=== PATIENT | male | born 1990 | race Caucasian/White ===

== ENCOUNTER 2025-02-08 17:44 | Inpatient (IN) | payer OTHER, SELFPAY ==
[2025-02-08 18:20] VITALS: BP 152/75; PULSE 80; RESP 18; TEMP 36.4; O2SAT 94; BMI 38.9
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
[2025-02-08] MEDS: guaiFENesin LA 600 MG TAB.ER.12H PO (18:54)
[2025-02-08 20:27] VITALS: BP 128/67
[2025-02-09 08:00] VITALS: BP 130/65; PULSE 66; RESP 16; O2SAT 97
[2025-02-09] MEDS: buPROPion HCl XL 300 MG TAB.ER.24H PO (08:16)
[2025-02-09 08:36] LABS: Hemoglobin A1C 129.4032 umol/L; Total Hemoglobin (HGBA1C) 3572.9648 umol/L
[2025-02-09 08:52] LABS: Alanine Aminotransferase 30 U/L (0-40); Albumin Level 4.1 g/dL (3.5-5.0); Alkaline Phosphatase 75 U/L (39-117); Anion Gap 10 (12-20); Aspartate Amino Transferase 24 U/L (5-37); Blood Urea Nitrogen 8 mg/dL (9-16); Calcium 8.7 mg/dL (8.4-10.2); Carbon Dioxide 33 mmol/L (22-29); Chloride 105 mmol/L (96-108); Cholesterol 155 mg/dL (<200); Creatinine Clr Calc Pharmacy 157.2; Estimated Glomerular Filt Rate > 60; HDL Cholesterol 33 mg/dL (>40); Potassium 3.9 mmol/L (3.3-5.1); Sodium 144 mmol/L (135-145); Total Protein 6.6 g/dL (6.5-8.0); Triglycerides 90 mg/dL (<150)
--- NOTE | 2025-02-09 08:59 | HO.PM.IMCN ---
History of Present Illness Data of Consult Service Date: 02/09/25 Primary Care Provider: Unknown Physician HPI Reason for consult: Medical H&P 35-year-old male with a past medical history of anxiety, asthma, bipolar disorder, hepatitis-C, presented to [facility] with suicidal ideation. He was admitted to for further treatment. His BMP was within normal limits, CBC was within normal limits, patient tested positive for amphetamines benzos and marijuana as well as buprenorphine. On exam he is sleeping in bed, denies any medical concerns. Reports his asthma has been well controlled, has not needed p.r.n. inhaler. He denies any shortness of breath, dizziness, lightheadedness, chest pain, abdominal pain or any other concerning symptoms. Review of Systems Review of Systems: Denies any shortness of breath, chest pain, dizziness, lightheadedness, abdominal pain or discomfort, nausea vomiting or diarrhea PMFSH Social History Currently Displaying Signs/Symptoms of Drug Intoxication Withdrawal: No Advance Directives: No Advance Directives Information Provided: No Do you have thoughts of harming others: None Do you have a plan to hurt others: No Plan Meds Allergies Allergy/AdvReac Type Severity Reaction Status Date / Time cefaclor (From Ceclor) AdvReac Unknown Verified 02/08/25 18:16 clopidogrel (From Plavix) AdvReac Unknown Verified 02/08/25 18:16 doxycycline AdvReac Unknown Verified 02/08/25 18:16 haloperidol (From Haldol) AdvReac Unknown Verified 02/08/25 18:16 Sulfa (Sulfonamide AdvReac Unknown Verified 02/08/25 18:16 Antibiotics) Active Medications: Current Medications Acetaminophen (Acetaminophen 325 Mg Tablet) 650 mg PO Q6H PRN PRN Reason: Headache/Pain, Scale 1-10 Al Hydroxide/Mg Hydroxide (Magnesium Hydrox/Alum Hydrox 30 Ml Oral.Susp) 30 ml PO Q6H PRN PRN Reason: Heartburn/Nausea Buprenorphine/Naloxone (Buprenorphine/Naloxone 8/2 Mg Film) 1 film SUBLINGUAL BID@0900,1700 [facility] Last Admin: 02/09/25 08:16 Dose: 1 film Bupropion HCl (Bupropion Hcl Xl 300 Mg Tab.Er.24h) 300 mg PO DAILY [facility] Last Admin: 02/09/25 08:16 Dose: 300 mg Bupropion HCl (Bupropion Hcl Xl 150 Mg Tab.Er.24h) 150 mg PO DAILY@1300 [facility] Clonazepam (Clonazepam 1 Mg Tablet) 2 mg PO BID@0900,1700 [facility] Last Admin: 02/09/25 08:16 Dose: 2 mg Gabapentin (Gabapentin 600 Mg Tablet) 600 mg PO TID [facility] Last Admin: 02/09/25 08:16 Dose: 600 mg Guaifenesin (Guaifenesin La 600 Mg Tab.Er.12h) 600 mg PO BID PRN PRN Reason: Cough Last Admin: 02/08/25 18:54 Dose: 600 mg Hydroxyzine HCl (Hydroxyzine Hcl 25 Mg Tablet) 25 mg PO Q6H PRN PRN Reason: mild anxiety Eunice Carbonate (Eunice Carbonate 300 Mg Capsule) 600 mg PO BID [facility] Last Admin: 02/09/25 08:16 Dose: 600 mg Magnesium Hydroxide (Milk Of Magnesia 30 Ml Oral.Susp) 30 ml PO DAILY PRN PRN Reason: Constipation Melatonin (Melatonin 3 Mg Tablet) 9 mg PO BEDTIME [facility] Last Admin: 02/08/25 20:33 Dose: 9 mg Nicotine (Nicotine 21 Mg Patch.Td24) 21 mg TRANSDERMA DAILY [facility] Last Admin: 02/09/25 08:19 Dose: Not Given Nicotine (Nicotine 21 Mg Patch.Td24) 21 mg TRANSDERMA DAILY PRN PRN Reason: nicotine craving Nicotine Polacrilex (Nicotine Polacrilex 2 Mg Gum) 2 mg BUCCAL Q2H PRN PRN Reason: Nicotine Cravings Last Admin: 02/09/25 08:16 Dose: 2 mg Olanzapine (Olanzapine 10 Mg Tablet) 20 mg PO BEDTIME [facility] Last Admin: 02/08/25 20:27 Dose: 20 mg Olanzapine (Olanzapine 5 Mg Tablet) 5 mg PO BID PRN PRN Reason: agitation Prazosin HCl (Prazosin Hcl 5 Mg Capsule) 5 mg PO BEDTIME [facility]; Protocol Last Admin: 02/08/25 20:27 Dose: 5 mg Trazodone HCl (Trazodone Hcl 50 Mg Tablet) 50 mg PO BEDTIME MRX1 PRN PRN Reason: Insomnia Home Medications ?Medication ?Instructions ?Recorded ?Confirmed ?Last Taken ?Type buprenorphine 8 mg-naloxone 2 mg 1 film sublingual BID 02/08/25 02/08/25 Unknown History sublingual film (Suboxone) bupropion HCl 150 mg 24 hr tablet, 150 mg PO DAILY 02/08/25 02/08/25 Unknown History extended release bupropion HCl 300 mg 24 hr tablet, 300 mg PO DAILY depressive disorder 02/08/25 02/08/25 Unknown History extended release clonazepam 2 mg tablet 2 mg PO BID anxiety 02/08/25 02/08/25 Unknown History gabapentin 600 mg tablet 600 mg PO TID depressive disorder 02/08/25 02/08/25 Unknown History lithium carbonate 600 mg capsule 600 mg PO BID 02/08/25 02/08/25 Unknown History melatonin 3 mg tablet 9 mg PO BEDTIME 02/08/25 02/08/25 Unknown History olanzapine 20 mg tablet 20 mg PO BEDTIME 02/08/25 02/08/25 Unknown History prazosin 5 mg capsule 5 mg PO BEDTIME 02/08/25 02/08/25 Unknown History Physical Exam Vital Signs and Narrative: Vital Signs: Last Vital Signs Temp 97.6 F 02/08/25 18:20 Pulse 66 02/09/25 08:00 Resp 16 02/09/25 08:00 BP 130/65 02/09/25 08:00 Pulse Ox 97 02/09/25 08:00 O2 Del Method Room Air 02/09/25 08:00 BMI result Body Mass Index 38.9 Alert and oriented X3, able to give good history. Cooperative. Neuro: CN II-X11 intact, no deficits, visual acuity intact, PERRLA ENT: Hearing intact, lips moist Cardiac: S1 S2 RRR, No ectopy Pulmonary: Lungs clear to auscultation, No increased WOB. Abdominal: BS active in all 4 quadrants, no guarding or tenderness MSK: Strength 5/5 upper and lower extremities : Deferred Extremities: No edema in lower extremities Psych: Quiet and cooperative. Skin: Warm and dry, Intact Results Labs 02/09/25 08:11 Labs: Laboratory Results - last 24 hr 02/09/25 08:11 Anion Gap 10 L Estim Creat Clear Calc 157.2 Estimated GFR > 60 Random Glucose 90 Estimat Average Glucose 111 Hemoglobin A1c % 5.5 Calcium 8.7 Total Bilirubin 0.2 AST 24 ALT 30 Alkaline Phosphatase 75 Total Protein 6.6 Albumin 4.1 Triglycerides 90 Cholesterol 155 LDL Cholesterol, Calc 104 H HDL Cholesterol 33 L Assessment and Plan (1) Anxiety: Status: Acute Plan Bipolar disorder/anxiety/suicidal ideation/JONO Treatment per psychiatric team Patient currently taking Suboxone, clonazepam. Confirmed with mass PAT Asthma Stable with no exacerbations Patient reports not using an inhaler. Thank you for allowing me to participate in the care of this patient. Signing off at this time. Please reconsult of any acute concerns or issues arise
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
[2025-02-09] MEDS: buPROPion HCl XL 150 MG TAB.ER.24H PO (12:20)
[2025-02-09] MEDS: guaiFENesin LA 600 MG TAB.ER.12H PO (13:09)
[2025-02-09 20:00] VITALS: BP 132/87; PULSE 85; RESP 16; TEMP 36.6; O2SAT 98
[2025-02-10 08:00] VITALS: BP 136/77; PULSE 88; RESP 16; TEMP 36.6; O2SAT 96
[2025-02-10] MEDS: buPROPion HCl XL 300 MG TAB.ER.24H PO (08:39)
[2025-02-10] MEDS: guaiFENesin LA 600 MG TAB.ER.12H PO (08:41)
--- NOTE | 2025-02-10 09:45 | P.PNPSI_ITS ---
Subjective Subjective Date of Service: 02/10/25 Reason For Visit: SI Interim History: met with pt; discussed with team; reviewed chart past 4 days, perseverative on daughter, loss of niece, self-deprecating thoughts led to SI feeling better, and though SI comes and goes can dismiss hx of manic episodes that last for a few days up to few weeks discussed hx of medications and pt said he used to be on depakote and did quite well...now on [facility] for 6 months, but felt it has not done much for depression or curbing SI. Discussed risks/side-effects of depakote and he's like to get back on it and likely taper off and dc lithium sober since July 2018 Mental Status Exam Mental Status Exam Narrative: Patient is alert and oriented; behavior is cooperative, friendly, calm; patient is not in distress; dressed in hospital attire with adequate hygiene; mood is described as better and affect congruent; eye contact appropriate; Speech is normal rate, volume and prosody and not pressured; some psychomotor retardation present; thought process is organized and goal directed; Thought content is WNL and on treatment; pertinent to relevant topics and without any delusional content, paranoid ideation or grandiosity; denies any SI/SIB/HI. Denies AH and there is no evidence of perceptual disturbance. Patient's insight and judgment improving Diagnostics Vital Signs (24Hr): Vital Signs - 24 hr 02/09/25 20:00 Temperature 97.8 F Pulse Rate 85 Respiratory Rate 16 Blood Pressure 132/87 Pulse Oximetry 98 Oxygen Delivery Method Room Air BMI result Body Mass Index 38.9 Labs 02/09/25 08:11 Labs: Laboratory Results - last 48 hr 02/09/25 08:11 Sodium 144 Potassium 3.9 Chloride 105 Carbon Dioxide 33 H Anion Gap 10 L BUN 8 L Creatinine 0.88 Estim Creat Clear Calc 157.2 Estimated GFR > 60 Random Glucose 90 Estimat Average Glucose 111 Hemoglobin A1c % 5.5 Calcium 8.7 Total Bilirubin 0.2 AST 24 ALT 30 Alkaline Phosphatase 75 Total Protein 6.6 Albumin 4.1 Triglycerides 90 Cholesterol 155 LDL Cholesterol, Calc 104 H HDL Cholesterol 33 L TSH 2.27 Medications Medications Current Medications Acetaminophen (Acetaminophen 325 Mg Tablet) 650 mg PO Q6H PRN PRN Reason: Headache/Pain, Scale 1-10 Last Admin: 02/10/25 05:05 Dose: 650 mg Al Hydroxide/Mg Hydroxide (Magnesium Hydrox/Alum Hydrox 30 Ml Oral.Susp) 30 ml PO Q6H PRN PRN Reason: Heartburn/Nausea Buprenorphine/Naloxone (Buprenorphine/Naloxone 8/2 Mg Film) 1 film SUBLINGUAL BID@0900,1700 [facility] Last Admin: 02/10/25 08:43 Dose: 1 film Bupropion HCl (Bupropion Hcl Xl 300 Mg Tab.Er.24h) 300 mg PO DAILY [facility] Last Admin: 02/10/25 08:39 Dose: 300 mg Bupropion HCl (Bupropion Hcl Xl 150 Mg Tab.Er.24h) 150 mg PO DAILY@1300 [facility] Last Admin: 02/09/25 12:20 Dose: 150 mg Clonazepam (Clonazepam 1 Mg Tablet) 2 mg PO BID@0900,1700 [facility] Last Admin: 02/10/25 08:39 Dose: 2 mg Gabapentin (Gabapentin 600 Mg Tablet) 600 mg PO TID [facility] Last Admin: 02/10/25 08:40 Dose: 600 mg Guaifenesin (Guaifenesin La 600 Mg Tab.Er.12h) 600 mg PO BID PRN PRN Reason: Cough Last Admin: 02/10/25 08:41 Dose: 600 mg Hydroxyzine HCl (Hydroxyzine Hcl 25 Mg Tablet) 25 mg PO Q6H PRN PRN Reason: mild anxiety [facility] Carbonate ([facility] Carbonate 300 Mg Capsule) 600 mg PO BID [facility] Last Admin: 02/10/25 08:38 Dose: 600 mg Magnesium Hydroxide (Milk Of Magnesia 30 Ml Oral.Susp) 30 ml PO DAILY PRN PRN Reason: Constipation Melatonin (Melatonin 3 Mg Tablet) 9 mg PO BEDTIME [facility] Last Admin: 02/09/25 20:16 Dose: 9 mg Nicotine (Nicotine 21 Mg Patch.Td24) 21 mg TRANSDERMA DAILY [facility] Last Admin: 02/09/25 08:19 Dose: Not Given Nicotine (Nicotine 21 Mg Patch.Td24) 21 mg TRANSDERMA DAILY PRN PRN Reason: nicotine craving Nicotine Polacrilex (Nicotine Polacrilex 2 Mg Gum) 4 mg BUCCAL Q2H PRN PRN Reason: Nicotine Cravings Last Admin: 02/10/25 09:14 Dose: 4 mg Olanzapine (Olanzapine 10 Mg Tablet) 20 mg PO BEDTIME [facility] Last Admin: 02/09/25 20:16 Dose: 20 mg Olanzapine (Olanzapine 5 Mg Tablet) 5 mg PO BID PRN PRN Reason: agitation Prazosin HCl (Prazosin Hcl 5 Mg Capsule) 5 mg PO BEDTIME [facility]; Protocol Last Admin: 02/09/25 20:15 Dose: 5 mg Trazodone HCl (Trazodone Hcl 50 Mg Tablet) 50 mg PO BEDTIME MRX1 PRN PRN Reason: Insomnia Allergies Allergies Allergy/AdvReac Type Severity Reaction Status Date / Time cefaclor (From Ceclor) AdvReac Unknown Verified 02/08/25 18:16 clopidogrel (From Plavix) AdvReac Unknown Verified 02/08/25 18:16 doxycycline AdvReac Unknown Verified 02/08/25 18:16 haloperidol (From Haldol) AdvReac Unknown Verified 02/08/25 18:16 Sulfa (Sulfonamide AdvReac Unknown Verified 02/08/25 18:16 Antibiotics) Assessment & Plan Assessment & Plan (1) Bipolar disorder: Status: Acute Code(s): F31.9 - Bipolar disorder, unspecified (2) PTSD (post-traumatic stress disorder): Status: Acute Code(s): F43.10 - Post-traumatic stress disorder, unspecified (3) Anxiety: Status: Acute Code(s): F41.9 - Anxiety disorder, unspecified (4) Opioid use disorder: Status: Acute Code(s): F11.90 - Opioid use, unspecified, uncomplicated (5) Alcohol use disorder in remission: Status: Acute Code(s): F10.91 - Alcohol use, unspecified, in remission Plan HPI: Patient is a 35 years old male with past medical history significant for opioid use disorder on Suboxone for MAT, alcohol use disorder, bipolar, hep C, PTSD, and asthma presenting to ED reports low mood and suicidal thoughts. He he thought he was ready to be discharged from [facility], however once he got home, after 4 days, he does feel very overwhelmed and anxious, stressed out, do not want to be around with his daughter who he loves. Do not want to be around the dog or around with family. He feels like his depression is worse after discharge from [place]. Formulation/clinical reasoning: Increase depression, and SI, feeling overwhelmed, not motivated to be around with loved ones, do not be want to be around with a dog family members which is not usual him. Using THC a couple of nights/week carrying mental health diagnosis of PTSD, bipolar, opioid use, alcohol use disorder with 3 suicide attempts in the past year. [facility] level was 0.2. Given information, patient will be benefit for inpatient level of care in restrictive environment for his safety and for medication adjustment to take it depressed and anxiety symptoms. Also will refer him to outpatient psychiatry services for aftercare. Hospital course: 02/09/25: No safety concern on admission. Restart on home medications. However is seems he only take lithium 600 at bedtime. Nursing confirmed with [facility], patient take it twice a day. We will increase the dose and recheck the level in 4-5 days after. MAT: Suboxone 8/2 films twice a day Klonopin 2 mg twice a day severe anxiety Gabapentin [address] mood [facility] 600 twice a day for mood. Wellbutrin XL 450 mg in divided dose for depression. Zyprexa 20 mg at bedtime for severe mood. Melatonin 9 mg at bedtime for insomnia. Mucinex 600 b.i.d. p.r.n. for congestion. Prazosin 5 mg at bedtime for PTSD. 02/10 past 4 days, perseverative on daughter, loss of niece, self-deprecating thoughts led to SI feeling better, and though SI comes and goes can dismiss hx of manic episodes that last for a few days up to few weeks discussed hx of medications and pt said he used to be on depakote and did quite well...now on [facility] for 6 months, but felt it has not done much for depression or curbing SI. Discussed risks/side-effects of depakote and he's like to get back on it and likely taper off and dc lithium sober since July 2018 Plan Start Depakot ER 500mg bedtime Patient on 15 minute checks for safety. Admitted to . . Work with treatment team to do collateral and for aftercare appointments. Contact the hospitalist regarding hospitalist consultation on admission Some labs work ordered per protocol on admission. Patient educated on: diagnosis, medication risk/benefits, substance abuse and therapeutic strategies Informed Consent: understands Reason for continued inpatient stay Substantial Risk for: rapid decompensation Time Spent With Patient Time: Total time managing care of this patient today ____ minutes.
[2025-02-10] MEDS: buPROPion HCl XL 150 MG TAB.ER.24H PO (12:05)
[2025-02-10 20:00] VITALS: BP 123/67; PULSE 87; RESP 18; TEMP 36.9; O2SAT 96
[2025-02-11 08:00] VITALS: BP 124/80; PULSE 105; RESP 16; TEMP 36.7; O2SAT 97
[2025-02-11] MEDS: buPROPion HCl XL 300 MG TAB.ER.24H PO (08:30)
[2025-02-11] MEDS: guaiFENesin LA 600 MG TAB.ER.12H PO ×2 (10:35→20:38)
[2025-02-11] MEDS: buPROPion HCl XL 150 MG TAB.ER.24H PO (12:00)
[2025-02-11 20:00] VITALS: BP 145/67; PULSE 88; TEMP 36.4; O2SAT 96
[2025-02-11 20:06] VITALS: BP 145/67
[2025-02-12 08:00] VITALS: PULSE 95; TEMP 36.6
[2025-02-12] MEDS: buPROPion HCl XL 300 MG TAB.ER.24H PO (08:14)
[2025-02-12 08:36] LABS: Lithium 0.56 mmol/L (0.60-1.20)
[2025-02-12] MEDS: guaiFENesin LA 600 MG TAB.ER.12H PO ×2 (09:06→21:11)
--- NOTE | 2025-02-12 09:46 | HO.PSYCHPN ---
Subjective Subjective Date of Service: 02/12/25 Reason For Visit: SI Interim History: Pt reports depressive sx 0, anxiety 5. States he believes regime to be on track and effective thus far. Later in the day, with peers, interactive, watching television and socializing. No current questions or concerns. Denies SI,HI, AH, VH No sx of behavioral dyscontrol Medication Compliance: Yes Side effects from medications: No Attending Groups: Intermittent Review of Systems Acute medical concerns: No Review of Systems Review of Systems Denies Mental Status Exam Mental Status Exam Patient Appearance: Fatigued and Appropriate Patient Orientation: Person, Place, Time and Situation Level of Consciousness: Alert Patient Behavior: Talkative Mood Description: Constricted Affect Description: Constricted Patient Cognition Impaired: No Ability to Follow Directions: Good Speech Pattern: Spontaneous Speech Memory Description: Intact Hallucinations: None Delusions: Not Present Thought Process: Intact Thought Content: positive for Intact Judgement: Fair Diagnostics Vital Signs (24Hr): Vital Signs - 24 hr 02/11/25 20:00 02/11/25 20:06 02/12/25 08:00 Temperature 97.6 F 98 F Pulse Rate 88 95 Blood Pressure 145/67 H 145/67 H Pulse Oximetry 96 Oxygen Delivery Method Room Air BMI result Body Mass Index 38.9 Labs 02/09/25 08:11 Labs: Laboratory Results - last 48 hr 02/12/25 07:40 [place] 0.56 L Medications Medications Current Medications Acetaminophen (Acetaminophen 325 Mg Tablet) 650 mg PO Q6H PRN PRN Reason: Headache/Pain, Scale 1-10 Last Admin: 02/10/25 05:05 Dose: 650 mg Al Hydroxide/Mg Hydroxide (Magnesium Hydrox/Alum Hydrox 30 Ml Oral.Susp) 30 ml PO Q6H PRN PRN Reason: Heartburn/Nausea Buprenorphine/Naloxone (Buprenorphine/Naloxone 8/2 Mg Film) 1 film SUBLINGUAL BID@0900,1700 [facility] Last Admin: 02/12/25 08:13 Dose: 1 film Bupropion HCl (Bupropion Hcl Xl 300 Mg Tab.Er.24h) 300 mg PO DAILY [facility] Last Admin: 02/12/25 08:14 Dose: 300 mg Bupropion HCl (Bupropion Hcl Xl 150 Mg Tab.Er.24h) 150 mg PO DAILY@1300 [facility] Last Admin: 02/11/25 12:00 Dose: 150 mg Clonazepam (Clonazepam 1 Mg Tablet) 2 mg PO BID@0900,1700 [facility] Last Admin: 02/12/25 08:14 Dose: 2 mg Divalproex Sodium (Divalproex Sodium Er 500 Mg Tab.Er.24h) 500 mg PO BEDTIME [facility] Last Admin: 02/11/25 20:07 Dose: 500 mg Fluticasone Propionate (Fluticasone Propionate Nasal 16 Gm [place]) 1 spray NOSTRIL-B DAILY [facility] Last Admin: 02/11/25 10:35 Dose: 1 spray Gabapentin (Gabapentin 600 Mg Tablet) 600 mg PO TID [facility] Last Admin: 02/12/25 08:13 Dose: 600 mg Guaifenesin (Guaifenesin La 600 Mg Tab.Er.12h) 600 mg PO BID PRN PRN Reason: Cough Last Admin: 02/12/25 09:06 Dose: 600 mg Hydroxyzine HCl (Hydroxyzine Hcl 25 Mg Tablet) 25 mg PO Q6H PRN PRN Reason: mild anxiety [place] Carbonate ([place] Carbonate 300 Mg Capsule) 600 mg PO BID [facility] Last Admin: 02/12/25 08:14 Dose: 600 mg Magnesium Hydroxide (Milk Of Magnesia 30 Ml Oral.Susp) 30 ml PO DAILY PRN PRN Reason: Constipation Melatonin (Melatonin 3 Mg Tablet) 9 mg PO BEDTIME [facility] Last Admin: 02/11/25 20:08 Dose: 9 mg Nicotine (Nicotine 21 Mg Patch.Td24) 21 mg TRANSDERMA DAILY [facility] Last Admin: 02/12/25 09:08 Dose: Not Given Nicotine (Nicotine 21 Mg Patch.Td24) 21 mg TRANSDERMA DAILY PRN PRN Reason: nicotine craving Nicotine Polacrilex (Nicotine Polacrilex 2 Mg Gum) 4 mg BUCCAL Q2H PRN PRN Reason: Nicotine Cravings Last Admin: 02/12/25 09:06 Dose: 4 mg Olanzapine (Olanzapine 10 Mg Tablet) 20 mg PO BEDTIME [facility] Last Admin: 02/11/25 20:06 Dose: 20 mg Olanzapine (Olanzapine 5 Mg Tablet) 5 mg PO BID PRN PRN Reason: agitation Prazosin HCl (Prazosin Hcl 5 Mg Capsule) 5 mg PO BEDTIME [facility]; Protocol Last Admin: 02/11/25 20:06 Dose: 5 mg Trazodone HCl (Trazodone Hcl 50 Mg Tablet) 50 mg PO BEDTIME MRX1 PRN PRN Reason: Insomnia Allergies Allergies Allergy/AdvReac Type Severity Reaction Status Date / Time cefaclor (From Ceclor) AdvReac Unknown Verified 02/08/25 18:16 clopidogrel (From Plavix) AdvReac Unknown Verified 02/08/25 18:16 doxycycline AdvReac Unknown Verified 02/08/25 18:16 haloperidol (From Haldol) AdvReac Unknown Verified 02/08/25 18:16 Sulfa (Sulfonamide AdvReac Unknown Verified 02/08/25 18:16 Antibiotics) Assessment & Plan Assessment & Plan (1) Bipolar disorder: Status: Acute Code(s): F31.9 - Bipolar disorder, unspecified (2) PTSD (post-traumatic stress disorder): Status: Acute Code(s): F43.10 - Post-traumatic stress disorder, unspecified (3) Anxiety: Status: Acute Code(s): F41.9 - Anxiety disorder, unspecified (4) Opioid use disorder: Status: Acute Code(s): F11.90 - Opioid use, unspecified, uncomplicated (5) Alcohol use disorder in remission: Status: Acute Code(s): F10.91 - Alcohol use, unspecified, in remission Plan HPI: Patient is a 35 years old male with past medical history significant for opioid use disorder on Suboxone for MAT, alcohol use disorder, bipolar, hep C, PTSD, and asthma presenting to ED reports low mood and suicidal thoughts. He he thought he was ready to be discharged from [facility], however once he got home, after 4 days, he does feel very overwhelmed and anxious, stressed out, do not want to be around with his daughter who he loves. Do not want to be around the dog or around with family. He feels like his depression is worse after discharge from [place]. Formulation/clinical reasoning: Increase depression, and SI, feeling overwhelmed, not motivated to be around with loved ones, do not be want to be around with a dog family members which is not usual him. Using THC a couple of nights/week carrying mental health diagnosis of PTSD, bipolar, opioid use, alcohol use disorder with 3 suicide attempts in the past year. [place] level was 0.2. Given information, patient will be benefit for inpatient level of care in restrictive environment for his safety and for medication adjustment to take it depressed and anxiety symptoms. Also will refer him to outpatient psychiatry services for aftercare. Hospital course: 02/09/25: No safety concern on admission. Restart on home medications. However is seems he only take lithium 600 at bedtime. Nursing confirmed with [facility], patient take it twice a day. We will increase the dose and recheck the level in 4-5 days after. MAT: Suboxone 8/2 films twice a day Klonopin 2 mg twice a day severe anxiety Gabapentin 600 with t.i.d. for mood [place] 600 twice a day for mood. Wellbutrin XL 450 mg in divided dose for depression. Zyprexa 20 mg at bedtime for severe mood. Melatonin 9 mg at bedtime for insomnia. Mucinex 600 b.i.d. p.r.n. for congestion. Prazosin 5 mg at bedtime for PTSD. 02/10 past 4 days, perseverative on daughter, loss of niece, self-deprecating thoughts led to SI feeling better, and though SI comes and goes can dismiss hx of manic episodes that last for a few days up to few weeks discussed hx of medications and pt said he used to be on depakote and did quite well...now on [place] for 6 months, but felt it has not done much for depression or curbing SI. Discussed risks/side-effects of depakote and he's like to get back on it and likely taper off and dc lithium sober since July 201802/12: Valproate level 02/14 for titration. Plan Start Depakot ER 500mg bedtime Patient on 15 minute checks for safety. Admitted to . [facility]. Work with treatment team to do collateral and for aftercare appointments. Contact the hospitalist regarding hospitalist consultation on admission Some labs work ordered per protocol on admission. Reason for continued inpatient stay Substantial Risk for: rapid decompensation Time Spent With Patient Time: Total time managing care of this patient today ____ minutes.
[2025-02-12] MEDS: buPROPion HCl XL 150 MG TAB.ER.24H PO (12:00)
[2025-02-12 19:31] VITALS: BP 112/70; PULSE 89; TEMP 36.7; O2SAT 95
[2025-02-12 19:59] VITALS: BP 112/70
[2025-02-12] MEDS: Divalproex Sodium ER 250 MG TAB.ER.24H 750 MG PO (19:59)
[2025-02-13 07:58] VITALS: BP 133/72; PULSE 78; RESP 18; O2SAT 94
[2025-02-13] MEDS: buPROPion HCl XL 300 MG TAB.ER.24H PO (08:25)
[2025-02-13] MEDS: buPROPion HCl XL 150 MG TAB.ER.24H PO (12:00)
--- NOTE | 2025-02-13 16:52 | P.PNPSI_ITS ---
Subjective Subjective Date of Service: 02/13/25 Reason For Visit: SI Interim History: Visable in milieu. Denies sx of concern or adverse effects. Valproate level 02/14 for titration No questions today regarding regime/plan. No requests for changes. Medication Compliance: Yes Side effects from medications: No Attending Groups: Intermittent Review of Systems Acute medical concerns: No Review of Systems Review of Systems I am OK. Mental Status Exam Mental Status Exam Patient Appearance: Appropriate Patient Orientation: Person, Place, Time and Situation Level of Consciousness: Alert Patient Behavior: Talkative Mood Description: Constricted Affect Description: Constricted Patient Cognition Impaired: No Ability to Follow Directions: Good Speech Pattern: Spontaneous Speech Memory Description: Intact Hallucinations: None Delusions: Not Present Thought Process: Intact Thought Content: positive for Intact Judgement: Fair Diagnostics Vital Signs (24Hr): Vital Signs - 24 hr 02/12/25 19:31 02/12/25 19:59 02/13/25 07:58 Temperature 98.0 F Pulse Rate 89 78 Respiratory Rate 18 Blood Pressure 112/70 112/70 133/72 Pulse Oximetry 95 94 Oxygen Delivery Method Room Air Room Air BMI result Body Mass Index 38.9 Labs 02/09/25 08:11 Labs: Laboratory Results - last 48 hr 02/12/25 07:40 [place] 0.56 L Medications Medications Current Medications Acetaminophen (Acetaminophen 325 Mg Tablet) 650 mg PO Q6H PRN PRN Reason: Headache/Pain, Scale 1-10 Last Admin: 02/10/25 05:05 Dose: 650 mg Al Hydroxide/Mg Hydroxide (Magnesium Hydrox/Alum Hydrox 30 Ml Oral.Susp) 30 ml PO Q6H PRN PRN Reason: Heartburn/Nausea Buprenorphine/Naloxone (Buprenorphine/Naloxone 8/2 Mg Film) 1 film SUBLINGUAL BID@0900,1700 [facility] Last Admin: 02/13/25 08:30 Dose: 1 film Bupropion HCl (Bupropion Hcl Xl 300 Mg Tab.Er.24h) 300 mg PO DAILY [facility] Last Admin: 02/13/25 08:25 Dose: 300 mg Bupropion HCl (Bupropion Hcl Xl 150 Mg Tab.Er.24h) 150 mg PO DAILY@1300 [facility] Last Admin: 02/13/25 12:00 Dose: 150 mg Clonazepam (Clonazepam 1 Mg Tablet) 2 mg PO BID@0900,1700 [facility] Last Admin: 02/13/25 08:25 Dose: 2 mg Divalproex Sodium (Divalproex Sodium Er 250 Mg Tab.Er.24h) 750 mg PO BEDTIME [facility] Last Admin: 02/12/25 19:59 Dose: 750 mg Fluticasone Propionate (Fluticasone Propionate Nasal 16 Gm [place]) 1 spray NOSTRIL-B DAILY [facility] Last Admin: 02/13/25 08:27 Dose: Not Given Gabapentin (Gabapentin 600 Mg Tablet) 600 mg PO TID [facility] Last Admin: 02/13/25 15:13 Dose: 600 mg Guaifenesin (Guaifenesin La 600 Mg Tab.Er.12h) 600 mg PO BID PRN PRN Reason: Cough Last Admin: 02/12/25 21:11 Dose: 600 mg Hydroxyzine HCl (Hydroxyzine Hcl 25 Mg Tablet) 25 mg PO Q6H PRN PRN Reason: mild anxiety [place] Carbonate ([place] Carbonate 300 Mg Capsule) 600 mg PO BID [facility] Last Admin: 02/13/25 08:25 Dose: 600 mg Magnesium Hydroxide (Milk Of Magnesia 30 Ml Oral.Susp) 30 ml PO DAILY PRN PRN Reason: Constipation Melatonin (Melatonin 3 Mg Tablet) 9 mg PO BEDTIME [facility] Last Admin: 02/12/25 19:58 Dose: 9 mg Nicotine (Nicotine 21 Mg Patch.Td24) 21 mg TRANSDERMA DAILY [facility] Last Admin: 02/13/25 08:26 Dose: Not Given Nicotine (Nicotine 21 Mg Patch.Td24) 21 mg TRANSDERMA DAILY PRN PRN Reason: nicotine craving Nicotine Polacrilex (Nicotine Polacrilex 2 Mg Gum) 4 mg BUCCAL Q2H PRN PRN Reason: Nicotine Cravings Last Admin: 02/13/25 10:58 Dose: 4 mg Olanzapine (Olanzapine 10 Mg Tablet) 20 mg PO BEDTIME [facility] Last Admin: 02/12/25 19:59 Dose: 20 mg Olanzapine (Olanzapine 5 Mg Tablet) 5 mg PO BID PRN PRN Reason: agitation Prazosin HCl (Prazosin Hcl 5 Mg Capsule) 5 mg PO BEDTIME [facility]; Protocol Last Admin: 02/12/25 19:59 Dose: 5 mg Trazodone HCl (Trazodone Hcl 50 Mg Tablet) 50 mg PO BEDTIME MRX1 PRN PRN Reason: Insomnia Allergies Allergies Allergy/AdvReac Type Severity Reaction Status Date / Time cefaclor (From [facility]) AdvReac Unknown Verified 07/15/25 18:16 clopidogrel (From Plavix) AdvReac Unknown Verified 02/08/25 18:16 doxycycline AdvReac Unknown Verified 02/08/25 18:16 haloperidol (From Haldol) AdvReac Unknown Verified 02/08/25 18:16 Sulfa (Sulfonamide AdvReac Unknown Verified 02/08/25 18:16 Antibiotics) Assessment & Plan Assessment & Plan (1) Bipolar disorder: Status: Acute Code(s): F31.9 - Bipolar disorder, unspecified (2) PTSD (post-traumatic stress disorder): Status: Acute Code(s): F43.10 - Post-traumatic stress disorder, unspecified (3) Anxiety: Status: Acute Code(s): F41.9 - Anxiety disorder, unspecified (4) Opioid use disorder: Status: Acute Code(s): F11.90 - Opioid use, unspecified, uncomplicated (5) Alcohol use disorder in remission: Status: Acute Code(s): F10.91 - Alcohol use, unspecified, in remission Plan HPI: Patient is a 35 years old male with past medical history significant for opioid use disorder on Suboxone for MAT, alcohol use disorder, bipolar, hep C, PTSD, and asthma presenting to ED reports low mood and suicidal thoughts. He he thought he was ready to be discharged from [facility], however once he got home, after 4 days, he does feel very overwhelmed and anxious, stressed out, do not want to be around with his daughter who he loves. Do not want to be around the dog or around with family. He feels like his depression is worse after discharge from [place]. Formulation/clinical reasoning: Increase depression, and SI, feeling overwhelmed, not motivated to be around with loved ones, do not be want to be around with a dog family members which is not usual him. Using THC a couple of nights/week carrying mental health diagnosis of PTSD, bipolar, opioid use, alcohol use disorder with 3 suicide attempts in the past year. [place] level was 0.2. Given information, patient will be benefit for inpatient level of care in restrictive environment for his safety and for medication adjustment to take it depressed and anxiety symptoms. Also will refer him to outpatient psychiatry services for aftercare. Hospital course: 02/09/25: No safety concern on admission. Restart on home medications. However is seems he only take lithium 600 at bedtime. Nursing confirmed with [facility], patient take it twice a day. We will increase the dose and recheck the level in 4-5 days after. MAT: Suboxone 8/2 films twice a day Klonopin 2 mg twice a day severe anxiety Gabapentin 600 with t.i.d. for mood [place] 600 twice a day for mood. Wellbutrin XL 450 mg in divided dose for depression. Zyprexa 20 mg at bedtime for severe mood. Melatonin 9 mg at bedtime for insomnia. Mucinex 600 b.i.d. p.r.n. for congestion. Prazosin 5 mg at bedtime for PTSD. 02/10 past 4 days, perseverative on daughter, loss of niece, self-deprecating thoughts led to SI feeling better, and though SI comes and goes can dismiss hx of manic episodes that last for a few days up to few weeks discussed hx of medications and pt said he used to be on depakote and did quite well...now on [place] for 6 months, but felt it has not done much for depression or curbing SI. Discussed risks/side-effects of depakote and he's like to get back on it and likely taper off and dc lithium 02/13: Valproate level 02/14 for titration. sober since July 2018 Plan Start Depakot ER 500mg bedtime Patient on 15 minute checks for safety. Admitted to . . Work with treatment team to do collateral and for aftercare appointments. Contact the hospitalist regarding hospitalist consultation on admission Some labs work ordered per protocol on admission. Reason for continued inpatient stay Substantial Risk for: rapid decompensation Time Spent With Patient Time: Total time managing care of this patient today ____ minutes.
[2025-02-13 20:00] VITALS: BP 127/73; PULSE 96; RESP 16; TEMP 36.6; O2SAT 97
[2025-02-13] MEDS: Divalproex Sodium ER 250 MG TAB.ER.24H 750 MG PO (20:09)
[2025-02-14 08:00] VITALS: BP 119/78; PULSE 81; RESP 16; TEMP 36.8; O2SAT 99
[2025-02-14] MEDS: buPROPion HCl XL 300 MG TAB.ER.24H PO (08:08)
[2025-02-14] MEDS: buPROPion HCl XL 150 MG TAB.ER.24H PO (12:01)
[2025-02-14 20:00] VITALS: BP 119/78; PULSE 86; RESP 18; TEMP 36.6; O2SAT 97
[2025-02-14] MEDS: Divalproex Sodium ER 250 MG TAB.ER.24H 750 MG PO (20:04)
[2025-02-14] MEDS: guaiFENesin LA 600 MG TAB.ER.12H PO (20:05)
--- NOTE | 2025-02-14 20:54 | P.PNPSI_ITS ---
Subjective Subjective Date of Service: 02/14/25 Reason For Visit: SI Subjective Notes: Conditional Voluntary Healthcare Proxy: No Guardianship: No Medical Problems Affecting Mental Status: No Medication Compliance: Yes Side effects from medications: Yes (Somewhat sedated) Attending Groups: No Review of Systems Acute medical concerns: No Medical Review of Systems: unchanged Review of Systems Review of Systems Denies any shortness of breath, chest pain, dizziness, lightheadedness, abdominal pain or discomfort, nausea vomiting or diarrhea Yes all other systems are reviewed and are negative Mental Status Exam Mental Status Exam Narrative: Patient is alert and oriented; behavior is cooperative, friendly with mild to moderate anxiety and depression; patient is not in distress; dressed in casual l attire with adequate hygiene; mood is described as depressed and anxiety and affect congruent; eye contact appropriate; Speech is normal rate, volume and prosody and not pressured; no psychomotor agitation/retardation present; thought process is organized and goal directed; Thought content is WNL, pertinent to relevant topics and without any delusional content, paranoid ideation or grandiosity; denies SIB/HI. However reports intermittently suicidal thoughts, denies plan or intention at this current time. Denies AH and there is no evidence of perceptual disturbance. Patient's insight and judgment fair. Diagnostics Vital Signs (24Hr): Vital Signs - 24 hr 02/14/25 08:00 02/14/25 20:00 Temperature 98.2 F 98 F Pulse Rate 81 86 Respiratory Rate 16 18 Blood Pressure 119/78 119/78 Pulse Oximetry 99 97 Oxygen Delivery Method Room Air Room Air BMI result Body Mass Index 38.9 Labs 02/09/25 08:11 Labs: Laboratory Results - last 48 hr 02/14/25 07:47 Valproic Acid 29.2 L Medications Medications Current Medications Acetaminophen (Acetaminophen 325 Mg Tablet) 650 mg PO Q6H PRN PRN Reason: Headache/Pain, Scale 1-10 Last Admin: 02/10/25 05:05 Dose: 650 mg Al Hydroxide/Mg Hydroxide (Magnesium Hydrox/Alum Hydrox 30 Ml Oral.Susp) 30 ml PO Q6H PRN PRN Reason: Heartburn/Nausea Buprenorphine/Naloxone (Buprenorphine/Naloxone 8/2 Mg Film) 1 film SUBLINGUAL BID@0900,1700 [facility] Last Admin: 02/14/25 17:26 Dose: 1 film Bupropion HCl (Bupropion Hcl Xl 300 Mg Tab.Er.24h) 300 mg PO DAILY [facility] Last Admin: 02/14/25 08:08 Dose: 300 mg Bupropion HCl (Bupropion Hcl Xl 150 Mg Tab.Er.24h) 150 mg PO DAILY@1200 [facility] Last Admin: 02/14/25 12:01 Dose: 150 mg Clonazepam (Clonazepam 1 Mg Tablet) 2 mg PO BID@0900,1700 [facility] Last Admin: 02/14/25 17:26 Dose: 2 mg Divalproex Sodium (Divalproex Sodium Er 250 Mg Tab.Er.24h) 750 mg PO BEDTIME [facility] Last Admin: 02/14/25 20:04 Dose: 750 mg Fluticasone Propionate (Fluticasone Propionate Nasal 16 Gm [place]) 1 spray NOSTRIL-B DAILY [facility] Last Admin: 02/14/25 08:10 Dose: Not Given Gabapentin (Gabapentin 600 Mg Tablet) 600 mg PO TID [facility] Last Admin: 02/14/25 20:05 Dose: 600 mg Guaifenesin (Guaifenesin [place] 600 Mg Tab.Er.12h) 600 mg PO BID PRN PRN Reason: Cough Last Admin: 02/14/25 20:05 Dose: 600 mg Hydroxyzine HCl (Hydroxyzine Hcl 25 Mg Tablet) 25 mg PO Q6H PRN PRN Reason: mild anxiety [place] Carbonate ([place] Carbonate 300 Mg Capsule) 600 mg PO BID [facility] Last Admin: 02/14/25 20:05 Dose: 600 mg Magnesium Hydroxide (Milk Of Magnesia 30 Ml Oral.Susp) 30 ml PO DAILY PRN PRN Reason: Constipation Melatonin (Melatonin 3 Mg Tablet) 9 mg PO BEDTIME [facility] Last Admin: 02/14/25 20:06 Dose: 9 mg Nicotine (Nicotine 21 Mg Patch.Td24) 21 mg TRANSDERMA DAILY [facility] Last Admin: 02/14/25 08:13 Dose: Not Given Nicotine (Nicotine 21 Mg Patch.Td24) 21 mg TRANSDERMA DAILY PRN PRN Reason: nicotine craving Nicotine Polacrilex (Nicotine Polacrilex 2 Mg Gum) 4 mg BUCCAL Q2H PRN PRN Reason: Nicotine Cravings Last Admin: 02/14/25 19:36 Dose: 4 mg Olanzapine (Olanzapine 10 Mg Tablet) 20 mg PO BEDTIME [facility] Last Admin: 02/14/25 20:04 Dose: 20 mg Olanzapine (Olanzapine 5 Mg Tablet) 5 mg PO BID PRN PRN Reason: agitation Prazosin HCl (Prazosin Hcl 5 Mg Capsule) 5 mg PO BEDTIME [facility]; Protocol Last Admin: 02/14/25 20:07 Dose: 5 mg Trazodone HCl (Trazodone Hcl 50 Mg Tablet) 50 mg PO BEDTIME MRX1 PRN PRN Reason: Insomnia Allergies Allergies Allergy/AdvReac Type Severity Reaction Status Date / Time cefaclor (From Ceclor) AdvReac Unknown Verified 02/08/25 18:16 clopidogrel (From Plavix) AdvReac Unknown Verified 02/08/25 18:16 doxycycline AdvReac Unknown Verified 02/08/25 18:16 haloperidol (From Haldol) AdvReac Unknown Verified 02/08/25 18:16 Sulfa (Sulfonamide AdvReac Unknown Verified 02/08/25 18:16 Antibiotics) Assessment & Plan Assessment & Plan (1) Bipolar disorder: Status: Acute Code(s): F31.9 - Bipolar disorder, unspecified (2) PTSD (post-traumatic stress disorder): Status: Acute Code(s): F43.10 - Post-traumatic stress disorder, unspecified (3) Anxiety: Status: Acute Code(s): F41.9 - Anxiety disorder, unspecified (4) Opioid use disorder: Status: Acute Code(s): F11.90 - Opioid use, unspecified, uncomplicated (5) Alcohol use disorder in remission: Status: Acute Code(s): F10.91 - Alcohol use, unspecified, in remission Plan HPI: Patient is a 35 years old male with past medical history significant for opioid use disorder on Suboxone for MAT, alcohol use disorder, bipolar, hep C, PTSD, and asthma presenting to ED reports low mood and suicidal thoughts. He he thought he was ready to be discharged from [facility], however once he got home, after 4 days, he does feel very overwhelmed and anxious, stressed out, do not want to be around with his daughter who he loves. Do not want to be around the dog or around with family. He feels like his depression is worse after discharge from [place]. Formulation/clinical reasoning: Increase depression, and SI, feeling overwhelmed, not motivated to be around with loved ones, do not be want to be around with a dog family members which is not usual him. Using THC a couple of nights/week carrying mental health diagnosis of PTSD, bipolar, opioid use, alcohol use disorder with 3 suicide attempts in the past year. [place] level was 0.2. Given information, patient will be benefit for inpatient level of care in restrictive environment for his safety and for medication adjustment to take it depressed and anxiety symptoms. Also will refer him to outpatient psychiatry services for aftercare. Hospital course: 02/09/25: No safety concern on admission. Restart on home medications. However is seems he only take lithium 600 at bedtime. [facility], patient take it twice a day. We will increase the dose and recheck the level in 4-5 days after. MAT: Suboxone 8/2 films twice a day Klonopin 2 mg twice a day severe anxiety Gabapentin 600 with t.i.d. for mood [place] 600 twice a day for mood. Wellbutrin XL 450 mg in divided dose for depression. Zyprexa 20 mg at bedtime for severe mood. Melatonin 9 mg at bedtime for insomnia. Mucinex 600 b.i.d. p.r.n. for congestion. Prazosin 5 mg at bedtime for PTSD. 02/10 past 4 days, perseverative on daughter, loss of niece, self-deprecating thoughts led to SI feeling better, and though SI comes and goes can dismiss hx of manic episodes that last for a few days up to few weeks discussed hx of medications and pt said he used to be on depakote and did quite well...now on [place] for 6 months, but felt it has not done much for depression or curbing SI. Discussed risks/side-effects of depakote and he's like to get back on it and likely taper off and dc lithium 02/13: Valproate level 02/14 for titration. sober since July 201802/14: We will continue titrate up on Depakote as the level come back low 29.2. We will double dose at this time. He currently on 750 at bedtime. We will titrate down on lithium is currently at 600 b.i.d. social service assistant and this provider met with patient in group room. Patient reports do intermittently having suicidal thoughts, with a plan or intention to do harm to him at this moment. Feel like he is not ready to be discharged and could be do something harmful to himself if discharged at this time. He has not attended groups which he agreed to do started today. Continued to report poor appetite. Rate anxiety a 4/10 and depression is 7/10. We will adjust his medication Increase Depakote 750 mg daily to 750 twice a day for depression/mood. Taper down on lithium. [place] 600 b.i.d. down to 300 b.i.d.. Plan [place] level on 02/12: 0.56. Kidney function is within normal limit VPA level on 02/14: 29.2. Liver function is within normal limit. Continue to titrate Depakote to therapeutic level to target depression. Titrate down and taper off from lithium. Patient on 15 minute checks for safety. Admitted to . [facility]. Work with treatment team to do collateral and for aftercare appointments. Some labs work ordered per protocol on admission. Patient educated on: medication risk/benefits and therapeutic strategies Informed Consent: understands Reason for continued inpatient stay Substantial Risk for: med/psych decompensation Time Spent With Patient Time: Total time managing care of this patient today ____ minutes.
[2025-02-15] MEDS: guaiFENesin LA 600 MG TAB.ER.12H PO (03:29)
--- NOTE | 2025-02-15 05:26 | PC.NURSE ---
Pt c/o wheezing cough and requested for inhaler at 0320. freight caller provider informed and order was put in for inhaler. However, he was irritable and angry, went to bed and slept off. RN tried to wake him up but Pt was snoring loud
[2025-02-15 08:00] VITALS: BP 140/82; PULSE 96; RESP 16; TEMP 36.4; O2SAT 94
[2025-02-15] MEDS: Divalproex Sodium ER 250 MG TAB.ER.24H 750 MG PO (08:00)
[2025-02-15] MEDS: buPROPion HCl XL 300 MG TAB.ER.24H PO (08:01)
--- NOTE | 2025-02-15 09:51 | P.PNPSI_ITS ---
Subjective Subjective Date of Service: 02/15/25 Reason For Visit: SI Interim History: Met with patient; discussed with team Patient says that he is overall feeling better and does not think he will need to be in the hospital much longer. He says he is getting a lot of the groups finds them very beneficial. Discussed discharge this and initially patient was anxious about it saying he wanted to stay another day so he could attend more groups; however with more discussion patient said he would be fine and that he remains overall stable for discharge, with plans to return to his brother's which he finds supportive. Denies any SI and says he will work on staying stable in the community, agreeing to consider going to partial day program. Mental Status Exam Mental Status Exam Narrative: Pt is alert and oriented; behavior is cooperative, friendly and calm; patient is not in distress; casually dressed with adequate hygiene and grooming; mood is described as better and affect congruent; eye contact appropriate; Speech is normal rate, volume and prosody and not pressured; no psychomotor agitation/retardation present; thought process is organized and goal directed; Thought content is on tx, aftercare; otherwise pertinent to relevant topics and without any delusional content, paranoid ideations or grandiosity; denies any SI/HI. Denies AVH and there is no evidence of perceptual disturbance. Patients insight and judgment appear intact. Diagnostics Vital Signs (24Hr): Vital Signs - 24 hr 02/14/25 20:00 02/15/25 08:00 Temperature 98 F 97.5 F Pulse Rate 86 96 Respiratory Rate 18 16 Blood Pressure 119/78 140/82 H Pulse Oximetry 97 94 Oxygen Delivery Method Room Air Room Air BMI result Body Mass Index 38.9 Labs 02/09/25 08:11 Labs: Laboratory Results - last 48 hr 02/14/25 07:47 Valproic Acid 29.2 L Medications Medications Current Medications Acetaminophen (Acetaminophen 325 Mg Tablet) 650 mg PO Q6H PRN PRN Reason: Headache/Pain, Scale 1-10 Last Admin: 02/15/25 07:59 Dose: 650 mg Al Hydroxide/Mg Hydroxide (Magnesium Hydrox/Alum Hydrox 30 Ml Oral.Susp) 30 ml PO Q6H PRN PRN Reason: Heartburn/Nausea Albuterol Sulfate (Albuterol Sulfate 90 Mcg 8 Gm Inhaler) 2 puff INHALE RQ4H PRN PRN Reason: SOB/wheeze Buprenorphine/Naloxone (Buprenorphine/Naloxone 8/2 Mg Film) 1 film SUBLINGUAL BID@0900,1700 [facility] Last Admin: 02/15/25 08:02 Dose: 1 film Bupropion HCl (Bupropion Hcl Xl 300 Mg Tab.Er.24h) 300 mg PO DAILY [facility] Last Admin: 02/15/25 08:01 Dose: 300 mg Bupropion HCl (Bupropion Hcl Xl 150 Mg Tab.Er.24h) 150 mg PO DAILY@1200 [facility] Last Admin: 02/14/25 12:01 Dose: 150 mg Clonazepam (Clonazepam 1 Mg Tablet) 2 mg PO BID@0900,1700 [facility] Last Admin: 02/15/25 08:01 Dose: 2 mg Divalproex Sodium (Divalproex Sodium Er 250 Mg Tab.Er.24h) 750 mg PO BID [facility] Last Admin: 02/15/25 08:00 Dose: 750 mg Fluticasone Propionate (Fluticasone Propionate Nasal 16 Gm [place]) 1 spray NOSTRIL-B DAILY [facility] Last Admin: 02/15/25 08:08 Dose: Not Given Gabapentin (Gabapentin 600 Mg Tablet) 600 mg PO TID [facility] Last Admin: 02/15/25 08:01 Dose: 600 mg Guaifenesin (Guaifenesin La 600 Mg Tab.Er.12h) 600 mg PO BID PRN PRN Reason: Cough Last Admin: 02/15/25 03:29 Dose: 600 mg Hydroxyzine HCl (Hydroxyzine Hcl 25 Mg Tablet) 25 mg PO Q6H PRN PRN Reason: mild anxiety [place] Carbonate ([place] Carbonate 300 Mg Capsule) 300 mg PO BID [facility] Last Admin: 02/15/25 08:00 Dose: 300 mg Magnesium Hydroxide (Milk Of Magnesia 30 Ml Oral.Susp) 30 ml PO DAILY PRN PRN Reason: Constipation Melatonin (Melatonin 3 Mg Tablet) 9 mg PO BEDTIME [facility] Last Admin: 02/14/25 20:06 Dose: 9 mg Nicotine (Nicotine 21 Mg Patch.Td24) 21 mg TRANSDERMA DAILY [facility] Last Admin: 02/15/25 08:07 Dose: Not Given Nicotine (Nicotine 21 Mg Patch.Td24) 21 mg TRANSDERMA DAILY PRN PRN Reason: nicotine craving Nicotine Polacrilex (Nicotine Polacrilex 2 Mg Gum) 4 mg BUCCAL Q2H PRN PRN Reason: Nicotine Cravings Last Admin: 02/15/25 08:24 Dose: 4 mg Olanzapine (Olanzapine 10 Mg Tablet) 20 mg PO BEDTIME [facility] Last Admin: 02/14/25 20:04 Dose: 20 mg Olanzapine (Olanzapine 5 Mg Tablet) 5 mg PO BID PRN PRN Reason: agitation Prazosin HCl (Prazosin Hcl 5 Mg Capsule) 5 mg PO BEDTIME [facility]; Protocol Last Admin: 02/14/25 20:07 Dose: 5 mg Trazodone HCl (Trazodone Hcl 50 Mg Tablet) 50 mg PO BEDTIME MRX1 PRN PRN Reason: Insomnia Allergies Allergies Allergy/AdvReac Type Severity Reaction Status Date / Time cefaclor (From Ceclor) AdvReac Unknown Verified 02/08/25 18:16 clopidogrel (From Plavix) AdvReac Unknown Verified 02/08/25 18:16 doxycycline AdvReac Unknown Verified 02/08/25 18:16 haloperidol (From Haldol) AdvReac Unknown Verified 02/08/25 18:16 Sulfa (Sulfonamide AdvReac Unknown Verified 02/08/25 18:16 Antibiotics) Assessment & Plan Assessment & Plan (1) Bipolar disorder: Status: Acute Code(s): F31.9 - Bipolar disorder, unspecified (2) PTSD (post-traumatic stress disorder): Status: Acute Code(s): F43.10 - Post-traumatic stress disorder, unspecified (3) Anxiety: Status: Acute Code(s): F41.9 - Anxiety disorder, unspecified (4) Opioid use disorder: Status: Acute Code(s): F11.90 - Opioid use, unspecified, uncomplicated (5) Alcohol use disorder in remission: Status: Acute Code(s): F10.91 - Alcohol use, unspecified, in remission Plan HPI: Patient is a 35 years old male with past medical history significant for opioid use disorder on Suboxone for MAT, alcohol use disorder, bipolar, hep C, PTSD, and asthma presenting to ED reports low mood and suicidal thoughts. He he thought he was ready to be discharged from [place] plan, however once he got home, after 4 days, he does feel very overwhelmed and anxious, stressed out, do not want to be around with his daughter who he loves. Do not want to be around the dog or around with family. He feels like his depression is worse after discharge from [place]. Formulation/clinical reasoning: Increase depression, and SI, feeling overwhelmed, not motivated to be around with loved ones, do not be want to be around with a dog family members which is not usual him. Using THC a couple of nights/week carrying mental health diagnosis of PTSD, bipolar, opioid use, alcohol use disorder with 3 suicide attempts in the past year. [place] level was 0.2. Given information, patient will be benefit for inpatient level of care in restrictive environment for his safety and for medication adjustment to take it depressed and anxiety symptoms. Also will refer him to outpatient psychiatry services for aftercare. Hospital course: 02/09/25: No safety concern on admission. Restart on home medications. However is seems he only take lithium 600 at bedtime. Nursing confirmed with [facility], patient take it twice a day. We will increase the dose and recheck the level in 4-5 days after. MAT: Suboxone 8/2 films twice a day Klonopin 2 mg twice a day severe anxiety Gabapentin 600 with t.i.d. for mood [place] 600 twice a day for mood. Wellbutrin XL 450 mg in divided dose for depression. Zyprexa 20 mg at bedtime for severe mood. Melatonin 9 mg at bedtime for insomnia. Mucinex 600 b.i.d. p.r.n. for congestion. Prazosin 5 mg at bedtime for PTSD. 02/10 past 4 days, perseverative on daughter, loss of niece, self-deprecating thoughts led to SI feeling better, and though SI comes and goes can dismiss hx of manic episodes that last for a few days up to few weeks discussed hx of medications and pt said he used to be on depakote and did quite well...now on [place] for 6 months, but felt it has not done much for depression or curbing SI. Discussed risks/side-effects of depakote and he's like to get back on it and likely taper off and dc lithium -sober since July 201802/11 Patient says he is feeling better and appreciates being started on Depakote. Wants to be weaned off lithium with it discontinued before he leaves. Agrees to increase Depakote dose 02/13: Valproate level 02/14 for titration. 02/14: We will continue titrate up on Depakote as the level come back low 29.2. We will double dose at this time. He currently on 750 at bedtime. We will titrate down on lithium is currently at 600 b.i.d. medical social worker and this provider met with patient in group room. Patient reports do intermittently having suicidal thoughts, with a plan or intention to do harm to him at this moment. Feel like he is not ready to be discharged and could be do something harmful to himself if discharged at this time. He has not attended groups which he agreed to do started today. Continued to report poor appetite. Rate anxiety a 11/04 and depression is 02/03. We will adjust his medication Increase Depakote 750 mg daily to 750 twice a day for depression/mood. Taper down on lithium. [place] 600 b.i.d. down to 300 b.i.d.. 02/15 Patient says that he is overall feeling better and does not think he will need to be in the hospital much longer. He says he is getting a lot of the groups finds them very beneficial. Discussed discharge this and initially patient was anxious about it saying he wanted to stay another day so he could attend more groups; however with more discussion patient said he would be fine and that he remains overall stable for discharge, with plans to return to his brother's which he finds supportive. Denies any SI and says he will work on staying stable in the community, agreeing to consider going to partial day program. -will reduce Depakote to 1000 q.h.s. and let outpatient provider further titrate if needed; will get labs -will taper and DC lithium Patient is at baseline. He has remained in good behavioral and impulse control, with depression resolved and anxiety significantly lowered; no SI. Patient is future oriented and plans to continue treatment as an outpatient. He will very likely continue to struggle with emotional reactivity and at some point become dysregulated again however this is a chronic struggle for him, 1 of which he is well aware and will not change with longer stay on inpatient unit. Rather he requires consistent outpatient treatment which patient says he is willing to engage. Patient is not in imminent risk for harm to self or others and appropriate to return to the community for treatment Plan Depakote ER 1000 mg q.h.s. -will get labs Taper DC lithium [place] level on 02/12: 0.56. Kidney function is within normal limit VPA level on 02/14: 29.2. Liver function is within normal limit. Continue to titrate Depakote to therapeutic level to target depression. Titrate down and taper off from lithium. Patient on 15 minute checks for safety. Admitted to . [facility]. Work with treatment team to do collateral and for aftercare appointments. Some labs work ordered per protocol on admission. Patient educated on: diagnosis, medication risk/benefits and therapeutic strategies Informed Consent: understands Reason for continued inpatient stay Substantial Risk for: stable for discharge Time Spent With Patient Time: Total time managing care of this patient today ____ minutes.
[2025-02-15] MEDS: buPROPion HCl XL 150 MG TAB.ER.24H PO (11:28)
[2025-02-15] MEDS: Magnesium Hydrox/Alum Hydrox 30 ML ORAL.SUSP PO (11:28)
[2025-02-15 19:59] VITALS: BP 121/73
[2025-02-15 20:00] VITALS: BP 121/73; PULSE 100; TEMP 36.8; O2SAT 98
[2025-02-16 08:00] VITALS: BP 139/91; PULSE 90; TEMP 36.8; O2SAT 90
[2025-02-16] MEDS: buPROPion HCl XL 300 MG TAB.ER.24H PO (08:19)
[2025-02-16 10:04] VITALS: O2SAT 95
[2025-02-16] MEDS: buPROPion HCl XL 150 MG TAB.ER.24H PO (11:19)
[2025-02-16] MEDS: Magnesium Hydrox/Alum Hydrox 30 ML ORAL.SUSP PO (11:19)
--- NOTE | 2025-02-16 16:37 | P.PNPSI_ITS ---
Subjective Subjective Date of Service: 02/11/25 Reason For Visit: SI Interim History: Late entry note for patient seen on 02/11/25; discussed with team Patient says he is feeling better and appreciates being started on Depakote. Wants to be weaned off lithium with it discontinued before he leaves. Agrees to increase Depakote dose Mental Status Exam Mental Status Exam Narrative: Patient is alert and oriented; behavior is cooperative, friendly, calm; patient is not in distress; dressed in hospital attire with adequate hygiene; mood is described as ok and affect congruent, brighter; eye contact appropriate; Speech is normal rate, volume and prosody and not pressured; some psychomotor retardation present; thought process is organized and goal directed; Thought content is WNL and on treatment; pertinent to relevant topics and without any delusional content, paranoid ideation or grandiosity; denies any SI/SIB/HI. Denies AH and there is no evidence of perceptual disturbance. Patient's insight and judgment improving Diagnostics Vital Signs (24Hr): Vital Signs - 24 hr 02/15/25 19:59 02/15/25 20:00 02/16/25 08:00 Temperature 98.2 F 98.2 F Pulse Rate 100 90 Blood Pressure 121/73 121/73 139/91 H Pulse Oximetry 98 90 L Oxygen Delivery Method Room Air Room Air 02/16/25 10:04 Temperature Pulse Rate Blood Pressure Pulse Oximetry 95 Oxygen Delivery Method Room Air BMI result Body Mass Index 38.9 Labs 02/09/25 08:11 Medications Medications Current Medications Acetaminophen (Acetaminophen 325 Mg Tablet) 650 mg PO Q6H PRN PRN Reason: Headache/Pain, Scale 1-10 Last Admin: 02/15/25 07:59 Dose: 650 mg Al Hydroxide/Mg Hydroxide (Magnesium Hydrox/Alum Hydrox 30 Ml Oral.Susp) 30 ml PO Q6H PRN PRN Reason: Heartburn/Nausea Last Admin: 02/16/25 11:19 Dose: 30 ml Albuterol Sulfate (Albuterol Sulfate 90 Mcg 8 Gm Inhaler) 2 puff INHALE RQ4H PRN PRN Reason: SOB/wheeze Buprenorphine/Naloxone (Buprenorphine/Naloxone 8/2 Mg Film) 1 film SUBLINGUAL BID@0900,1700 [facility] Last Admin: 02/16/25 08:19 Dose: 1 film Bupropion HCl (Bupropion Hcl Xl 300 Mg Tab.Er.24h) 300 mg PO DAILY [facility] Last Admin: 02/16/25 08:19 Dose: 300 mg Bupropion HCl (Bupropion Hcl Xl 150 Mg Tab.Er.24h) 150 mg PO DAILY@1200 [facility] Last Admin: 02/16/25 11:19 Dose: 150 mg Clonazepam (Clonazepam 1 Mg Tablet) 2 mg PO BID@0900,1700 [facility] Last Admin: 02/16/25 08:19 Dose: 2 mg Divalproex Sodium (Divalproex Sodium Er 500 Mg Tab.Er.24h) 1,000 mg PO BEDTIME [facility] Last Admin: 02/15/25 20:00 Dose: 1,000 mg Fluticasone Propionate (Fluticasone Propionate Nasal 16 Gm [place]) 1 spray NOSTRIL-B DAILY [facility] Last Admin: 02/16/25 11:19 Dose: 1 spray Gabapentin (Gabapentin 600 Mg Tablet) 600 mg PO TID [facility] Last Admin: 02/16/25 15:00 Dose: 600 mg Guaifenesin (Guaifenesin La 600 Mg Tab.Er.12h) 600 mg PO BID PRN PRN Reason: Cough Last Admin: 02/15/25 03:29 Dose: 600 mg Hydroxyzine HCl (Hydroxyzine Hcl 25 Mg Tablet) 25 mg PO Q6H PRN PRN Reason: mild anxiety Magnesium Hydroxide (Milk Of Magnesia 30 Ml Oral.Susp) 30 ml PO DAILY PRN PRN Reason: Constipation Melatonin (Melatonin 3 Mg Tablet) 9 mg PO BEDTIME [facility] Last Admin: 02/15/25 19:59 Dose: 9 mg Nicotine (Nicotine 21 Mg Patch.Td24) 21 mg TRANSDERMA DAILY [facility] Last Admin: 02/16/25 11:41 Dose: Not Given Nicotine (Nicotine 21 Mg Patch.Td24) 21 mg TRANSDERMA DAILY PRN PRN Reason: nicotine craving Nicotine Polacrilex (Nicotine Polacrilex 2 Mg Gum) 4 mg BUCCAL Q2H PRN PRN Reason: Nicotine Cravings Last Admin: 02/16/25 11:19 Dose: 4 mg Olanzapine (Olanzapine 10 Mg Tablet) 20 mg PO BEDTIME [facility] Last Admin: 02/15/25 19:59 Dose: 20 mg Olanzapine (Olanzapine 5 Mg Tablet) 5 mg PO BID PRN PRN Reason: agitation Prazosin HCl (Prazosin Hcl 5 Mg Capsule) 5 mg PO BEDTIME [facility]; Protocol Last Admin: 02/15/25 19:59 Dose: 5 mg Trazodone HCl (Trazodone Hcl 50 Mg Tablet) 50 mg PO BEDTIME MRX1 PRN PRN Reason: Insomnia Allergies Allergies Allergy/AdvReac Type Severity Reaction Status Date / Time cefaclor (From Ceclor) AdvReac Unknown Verified 02/08/25 18:16 clopidogrel (From Plavix) AdvReac Unknown Verified 02/08/25 18:16 doxycycline AdvReac Unknown Verified 02/08/25 18:16 haloperidol (From Haldol) AdvReac Unknown Verified 02/08/25 18:16 Sulfa (Sulfonamide AdvReac Unknown Verified 02/08/25 18:16 Antibiotics) Assessment & Plan Assessment & Plan (1) Bipolar disorder: Status: Acute Code(s): F31.9 - Bipolar disorder, unspecified (2) PTSD (post-traumatic stress disorder): Status: Acute Code(s): F43.10 - Post-traumatic stress disorder, unspecified (3) Anxiety: Status: Acute Code(s): F41.9 - Anxiety disorder, unspecified (4) Opioid use disorder: Status: Acute Code(s): F11.90 - Opioid use, unspecified, uncomplicated (5) Alcohol use disorder in remission: Status: Acute Code(s): F10.91 - Alcohol use, unspecified, in remission Plan HPI: Patient is a 35 years old male with past medical history significant for opioid use disorder on Suboxone for MAT, alcohol use disorder, bipolar, hep C, PTSD, and asthma presenting to ED reports low mood and suicidal thoughts. He he thought he was ready to be discharged from [facility], however once he got home, after 4 days, he does feel very overwhelmed and anxious, stressed out, do not want to be around with his daughter who he loves. Do not want to be around the dog or around with family. He feels like his depression is worse after discharge from [place]. Formulation/clinical reasoning: Increase depression, and SI, feeling overwhelmed, not motivated to be around with loved ones, do not be want to be around with a dog family members which is not usual him. Using THC a couple of nights/week carrying mental health diagnosis of PTSD, bipolar, opioid use, alcohol use disorder with 3 suicide attempts in the past year. [place] level was 0.2. Given information, patient will be benefit for inpatient level of care in restrictive environment for his safety and for medication adjustment to take it depressed and anxiety symptoms. Also will refer him to outpatient psychiatry services for aftercare. Hospital course: 02/09/25: No safety concern on admission. Restart on home medications. However is seems he only take lithium 600 at bedtime. [facility], patient take it twice a day. We will increase the dose and recheck the level in 4-5 days after. MAT: Suboxone 8/2 films twice a day Klonopin 2 mg twice a day severe anxiety Gabapentin 600 with t.i.d. for mood [place] 600 twice a day for mood. Wellbutrin XL 450 mg in divided dose for depression. Zyprexa 20 mg at bedtime for severe mood. Melatonin 9 mg at bedtime for insomnia. Mucinex 600 b.i.d. p.r.n. for congestion. Prazosin 5 mg at bedtime for PTSD. 02/10 past 4 days, perseverative on daughter, loss of niece, self-deprecating thoughts led to SI feeling better, and though SI comes and goes can dismiss hx of manic episodes that last for a few days up to few weeks discussed hx of medications and pt said he used to be on depakote and did quite well...now on [place] for 6 months, but felt it has not done much for depression or curbing SI. Discussed risks/side-effects of depakote and he's like to get back on it and likely taper off and dc lithium -sober since July 201802/11 Patient says he is feeling better and appreciates being started on Depakote. Wants to be weaned off lithium with it discontinued before he leaves. Agrees to increase Depakote dose Plan Start Depakot ER 500mg bedtime Patient on 15 minute checks for safety. Admitted to . . Work with treatment team to do collateral and for aftercare appointments. Contact the hospitalist regarding hospitalist consultation on admission Some labs work ordered per protocol on admission. Patient educated on: diagnosis and medication risk/benefits Informed Consent: understands Reason for continued inpatient stay Substantial Risk for: rapid decompensation Time Spent With Patient Time: Total time managing care of this patient today ____ minutes.
--- NOTE | 2025-02-16 16:47 | HO.PSYCHPN ---
Subjective Subjective Date of Service: 02/16/25 Reason For Visit: SI Interim History: Met with patient; discussed with team Patient says he is doing good and ready for discharge tomorrow. No complaints or requests. Understands Depakote level will be drawn tomorrow. Regarding controlled substances discussed scripts for continuing Suboxone and clonazepam. Mental Status Exam Mental Status Exam Narrative: Pt is alert and oriented; behavior is cooperative, friendly and calm; patient is not in distress; casually dressed with adequate hygiene and grooming; mood is described as good and affect congruent; eye contact appropriate; Speech is normal rate, volume and prosody and not pressured; no psychomotor agitation/retardation present; thought process is organized and goal directed; Thought content is on tx, aftercare; otherwise pertinent to relevant topics and without any delusional content, paranoid ideations or grandiosity; denies any SI/HI. Denies AVH and there is no evidence of perceptual disturbance. Patients insight and judgment are intact. Diagnostics Vital Signs (24Hr): Vital Signs - 24 hr 02/15/25 19:59 02/15/25 20:00 02/16/25 08:00 Temperature 98.2 F 98.2 F Pulse Rate 100 90 Blood Pressure 121/73 121/73 139/91 H Pulse Oximetry 98 90 L Oxygen Delivery Method Room Air Room Air 02/16/25 10:04 Temperature Pulse Rate Blood Pressure Pulse Oximetry 95 Oxygen Delivery Method Room Air BMI result Body Mass Index 38.9 Labs 02/09/25 08:11 Medications Medications Current Medications Acetaminophen (Acetaminophen 325 Mg Tablet) 650 mg PO Q6H PRN PRN Reason: Headache/Pain, Scale 1-10 Last Admin: 02/15/25 07:59 Dose: 650 mg Al Hydroxide/Mg Hydroxide (Magnesium Hydrox/Alum Hydrox 30 Ml Oral.Susp) 30 ml PO Q6H PRN PRN Reason: Heartburn/Nausea Last Admin: 02/16/25 11:19 Dose: 30 ml Albuterol Sulfate (Albuterol Sulfate 90 Mcg 8 Gm Inhaler) 2 puff INHALE RQ4H PRN PRN Reason: SOB/wheeze Buprenorphine/Naloxone (Buprenorphine/Naloxone 8/2 Mg Film) 1 film SUBLINGUAL BID@0900,1700 MOOSE Last Admin: 02/16/25 16:41 Dose: 1 film Bupropion HCl (Bupropion Hcl Xl 300 Mg Tab.Er.24h) 300 mg PO DAILY [facility] Last Admin: 02/16/25 08:19 Dose: 300 mg Bupropion HCl (Bupropion Hcl Xl 150 Mg Tab.Er.24h) 150 mg PO DAILY@1200 [facility] Last Admin: 02/16/25 11:19 Dose: 150 mg Clonazepam (Clonazepam 1 Mg Tablet) 2 mg PO BID@0900,1700 [facility] Last Admin: 02/16/25 16:41 Dose: 2 mg Divalproex Sodium (Divalproex Sodium Er 500 Mg Tab.Er.24h) 1,000 mg PO BEDTIME [facility] Last Admin: 02/15/25 20:00 Dose: 1,000 mg Fluticasone Propionate (Fluticasone Propionate Nasal 16 Gm [place]) 1 spray NOSTRIL-B DAILY [facility] Last Admin: 02/16/25 11:19 Dose: 1 spray Gabapentin (Gabapentin 600 Mg Tablet) 600 mg PO TID [facility] Last Admin: 02/16/25 15:00 Dose: 600 mg Guaifenesin (Guaifenesin [place] 600 Mg Tab.Er.12h) 600 mg PO BID PRN PRN Reason: Cough Last Admin: 02/15/25 03:29 Dose: 600 mg Hydroxyzine HCl (Hydroxyzine Hcl 25 Mg Tablet) 25 mg PO Q6H PRN PRN Reason: mild anxiety Magnesium Hydroxide (Milk Of Magnesia 30 Ml Oral.Susp) 30 ml PO DAILY PRN PRN Reason: Constipation Melatonin (Melatonin 3 Mg Tablet) 9 mg PO BEDTIME [facility] Last Admin: 02/15/25 19:59 Dose: 9 mg Nicotine (Nicotine 21 Mg Patch.Td24) 21 mg TRANSDERMA DAILY [facility] Last Admin: 02/16/25 11:41 Dose: Not Given Nicotine (Nicotine 21 Mg Patch.Td24) 21 mg TRANSDERMA DAILY PRN PRN Reason: nicotine craving Nicotine Polacrilex (Nicotine Polacrilex 2 Mg Gum) 4 mg BUCCAL Q2H PRN PRN Reason: Nicotine Cravings Last Admin: 02/16/25 16:44 Dose: 4 mg Olanzapine (Olanzapine 10 Mg Tablet) 20 mg PO BEDTIME [facility] Last Admin: 02/15/25 19:59 Dose: 20 mg Olanzapine (Olanzapine 5 Mg Tablet) 5 mg PO BID PRN PRN Reason: agitation Prazosin HCl (Prazosin Hcl 5 Mg Capsule) 5 mg PO BEDTIME [facility]; Protocol Last Admin: 02/15/25 19:59 Dose: 5 mg Trazodone HCl (Trazodone Hcl 50 Mg Tablet) 50 mg PO BEDTIME MRX1 PRN PRN Reason: Insomnia Allergies Allergies Allergy/AdvReac Type Severity Reaction Status Date / Time cefaclor (From Ceclor) AdvReac Unknown Verified 02/08/25 18:16 clopidogrel (From Plavix) AdvReac Unknown Verified 02/08/25 18:16 doxycycline AdvReac Unknown Verified 02/08/25 18:16 haloperidol (From Haldol) AdvReac Unknown Verified 02/08/25 18:16 Sulfa (Sulfonamide AdvReac Unknown Verified 02/08/25 18:16 Antibiotics) Assessment & Plan Assessment & Plan (1) Bipolar disorder: Status: Acute Code(s): F31.9 - Bipolar disorder, unspecified (2) PTSD (post-traumatic stress disorder): Status: Acute Code(s): F43.10 - Post-traumatic stress disorder, unspecified (3) Anxiety: Status: Acute Code(s): F41.9 - Anxiety disorder, unspecified (4) Opioid use disorder: Status: Acute Code(s): F11.90 - Opioid use, unspecified, uncomplicated (5) Alcohol use disorder in remission: Status: Acute Code(s): F10.91 - Alcohol use, unspecified, in remission Plan HPI: Patient is a 35 years old male with past medical history significant for opioid use disorder on Suboxone for MAT, alcohol use disorder, bipolar, hep C, PTSD, and asthma presenting to ED reports low mood and suicidal thoughts. He he thought he was ready to be discharged from [facility], however once he got home, after 4 days, he does feel very overwhelmed and anxious, stressed out, do not want to be around with his daughter who he loves. Do not want to be around the dog or around with family. He feels like his depression is worse after discharge from [place]. Formulation/clinical reasoning: Increase depression, and SI, feeling overwhelmed, not motivated to be around with loved ones, do not be want to be around with a dog family members which is not usual him. Using THC a couple of nights/week carrying mental health diagnosis of PTSD, bipolar, opioid use, alcohol use disorder with 3 suicide attempts in the past year. [place] level was 0.2. Given information, patient will be benefit for inpatient level of care in restrictive environment for his safety and for medication adjustment to take it depressed and anxiety symptoms. Also will refer him to outpatient psychiatry services for aftercare. Hospital course: 02/09/25: No safety concern on admission. Restart on home medications. However is seems he only take lithium 600 at bedtime. Nursing confirmed with [facility], patient take it twice a day. We will increase the dose and recheck the level in 4-5 days after. MAT: Suboxone 8/2 films twice a day Klonopin 2 mg twice a day severe anxiety Gabapentin 600 with t.i.d. for mood [place] 600 twice a day for mood. Wellbutrin XL 450 mg in divided dose for depression. Zyprexa 20 mg at bedtime for severe mood. Melatonin 9 mg at bedtime for insomnia. Mucinex 600 b.i.d. p.r.n. for congestion. Prazosin 5 mg at bedtime for PTSD. 02/10 past 4 days, perseverative on daughter, loss of niece, self-deprecating thoughts led to SI feeling better, and though SI comes and goes can dismiss hx of manic episodes that last for a few days up to few weeks discussed hx of medications and pt said he used to be on depakote and did quite well...now on [place] for 6 months, but felt it has not done much for depression or curbing SI. Discussed risks/side-effects of depakote and he's like to get back on it and likely taper off and dc lithium -sober since July 201802/11 Patient says he is feeling better and appreciates being started on Depakote. Wants to be weaned off lithium with it discontinued before he leaves. Agrees to increase Depakote dose 02/13: Valproate level 02/14 for titration. 02/14: We will continue titrate up on Depakote as the level come back low 29.2. We will double dose at this time. He currently on 750 at bedtime. We will titrate down on lithium is currently at 600 b.i.d. health social work professor and this provider met with patient in group room. Patient reports do intermittently having suicidal thoughts, with a plan or intention to do harm to him at this moment. Feel like he is not ready to be discharged and could be do something harmful to himself if discharged at this time. He has not attended groups which he agreed to do started today. Continued to report poor appetite. Rate anxiety a 10 and depression is 02/03. We will adjust his medication Increase Depakote 750 mg daily to 750 twice a day for depression/mood. Taper down on lithium. [place] 600 b.i.d. down to 300 b.i.d.. 02/15 Patient says that he is overall feeling better and does not think he will need to be in the hospital much longer. He says he is getting a lot of the groups finds them very beneficial. Discussed discharge this and initially patient was anxious about it saying he wanted to stay another day so he could attend more groups; however with more discussion patient said he would be fine and that he remains overall stable for discharge, with plans to return to his brother's which he finds supportive. Denies any SI and says he will work on staying stable in the community, agreeing to consider going to partial day program. -will reduce Depakote to 1000 q.h.s. and let outpatient provider further titrate if needed; will get labs -will taper and DC lithium Patient is at baseline. He has remained in good behavioral and impulse control, with depression resolved and anxiety significantly lowered; no SI. Patient is future oriented and plans to continue treatment as an outpatient. He will very likely continue to struggle with emotional reactivity and at some point become dysregulated again however this is a chronic struggle for him, 1 of which he is well aware and will not change with longer stay on inpatient unit. Rather he requires consistent outpatient treatment which patient says he is willing to engage. Patient is not in imminent risk for harm to self or others and appropriate to return to the community for treatment Plan Depakote ER 1000 mg q.h.s. -will get labs Taper DC lithium [place] level on 02/12: 0.56. Kidney function is within normal limit VPA level on 02/14: 29.2. Liver function is within normal limit. Continue to titrate Depakote to therapeutic level to target depression. Titrate down and taper off from lithium. Patient on 15 minute checks for safety. Admitted to [facility]. Work with treatment team to do collateral and for aftercare appointments. Some labs work ordered per protocol on admission. Patient educated on: diagnosis and medication risk/benefits Informed Consent: understands Reason for continued inpatient stay Substantial Risk for: stable for discharge Time Spent With Patient Time: Total time managing care of this patient today ____ minutes.
[2025-02-16 20:00] VITALS: BP 133/86; PULSE 99; RESP 16; TEMP 36.1; O2SAT 96
[2025-02-16 20:36] VITALS: BP 133/86
[2025-02-17 08:11] VITALS: BP 117/68; PULSE 98; RESP 20; TEMP 36.7; O2SAT 95
[2025-02-17] MEDS: buPROPion HCl XL 300 MG TAB.ER.24H PO (08:15)
[2025-02-17] MEDS: Naloxone HCl Nasal TAKE HOME 4 MG SPRAY 8 MG NOSTRILALT (08:17)
[2025-02-17 08:32] LABS: Alanine Aminotransferase 29 U/L (0-40); Albumin Level 4.2 g/dL (3.5-5.0); Alkaline Phosphatase 82 U/L (39-117); Aspartate Amino Transferase 21 U/L (5-37); Total Protein 6.9 g/dL (6.5-8.0)
--- NOTE | 2025-02-17 08:39 | PM.PSYDC ---
DS: Providers Provider Date of Service: 02/17/25 Date of admission: 02/08/25 17:44 Date of discharge: 02/17/25 Primary care physician: Unknown Physician Admitting clinician: Jessica Mandujano Consults: 02/08/25 18:18 Consult to Hospitalist Routine Comment: Consulting Provider: [facility] Reason For Exam: New external admit. Need H&P Attending physician on discharge: Alan Julio DS: Diagnosis Discharge Diagnosis (1) Bipolar disorder: Status: Acute (2) PTSD (post-traumatic stress disorder): Status: Acute (3) Anxiety: Status: Acute (4) Opioid use disorder: Status: Acute (5) Alcohol use disorder in remission: Status: Acute DS: Medications Discharge Medications Home Medications: Home Medications ?Medication ?Instructions ?Recorded ?Confirmed buprenorphine 8 mg-naloxone 2 mg 1 film sublingual BID 02/08/25 02/08/25 sublingual film (Suboxone) bupropion HCl 150 mg 24 hr tablet, 150 mg PO DAILY 02/08/25 02/08/25 extended release bupropion HCl 300 mg 24 hr tablet, 300 mg PO DAILY depressive disorder 02/08/25 02/08/25 extended release clonazepam 2 mg tablet 2 mg PO BID anxiety 02/08/25 02/08/25 gabapentin 600 mg tablet 600 mg PO TID depressive disorder 02/08/25 02/08/25 lithium carbonate 600 mg capsule 600 mg PO BID 02/08/25 02/08/25 melatonin 3 mg tablet 9 mg PO BEDTIME 02/08/25 02/08/25 olanzapine 20 mg tablet 20 mg PO BEDTIME 02/08/25 02/08/25 prazosin 5 mg capsule 5 mg PO BEDTIME 02/08/25 02/08/25 Mental Status Exam Mental Status Exam Narrative: Pt is alert and oriented; behavior is cooperative, friendly and calm; patient is not in distress; casually dressed with adequate hygiene and grooming; mood is described as good and affect congruent; eye contact appropriate; Speech is normal rate, volume and prosody and not pressured; no psychomotor agitation/retardation present; thought process is organized and goal directed; Thought content is on tx, aftercare; otherwise pertinent to relevant topics and without any delusional content, paranoid ideations or grandiosity; denies any SI/HI. Denies AVH and there is no evidence of perceptual disturbance. Patients insight and judgment are intact. Data Data Completed and Pending Completed studies during hospitalization [Text1]: 02/12/25 02/14/25 02/17/25 07:40 07:47 07:57 Total Bilirubin 0.2 Direct Bilirubin < 0.2 AST 21 ALT 29 Alkaline Phosphatase 82 Total Protein 6.9 Albumin 4.2 Valproic Acid 29.2 L Pending [place] 0.56 L DS: Summary Hospital Course Hospital Course: HPI: Patient is a 35 years old male with past medical history bipolar disorder, PTSD, opioid use disorder (in remission on Suboxone for MAT), alcohol use disorder (in remission),, hep C, asthma and numerous back to back psychiatric hospital admissions, who presented to ED reports 4 days after being discharged from psych admission in [facility], for return of SI. Pt reports after dc once he got home he again started to feel very overwhelmed and anxious, stressed out, do not want to be around with his daughter who he loves. Do not want to be around the dog or around with family. He feels like his depression is worse after discharge from [place]. And patient endorsed SI. Patient endorsed hx of manic episodes that last for a few days up to few weeks Formulation/clinical reasoning: Increase depression, and SI (which is chronic) feeling overwhelmed, not motivated to be around with loved ones, do not be want to be around with a dog family members which is not usual him. Using THC a couple of nights/week carrying mental health diagnosis of PTSD, bipolar, opioid use, alcohol use disorder with 3 suicide attempts in the past year. [place] level was 0.2. Given information, patient will be benefit for inpatient level of care in restrictive environment for his safety and for medication adjustment to take it depressed and anxiety symptoms. Also will refer him to outpatient psychiatry services for aftercare. Hospital course: Patient depressed and anxious on admission; SI coming and going Patient continued on/restarted on home medications. [place] dose increased since level was low MAT: Suboxone 8/2 films twice a day Klonopin 2 mg twice a day severe anxiety Gabapentin 600 with t.i.d. for mood [place] 600 twice a day for mood. Wellbutrin XL 450 mg in divided dose for depression. Zyprexa 20 mg at bedtime for severe mood. Melatonin 9 mg at bedtime for insomnia. Mucinex 600 b.i.d. p.r.n. for congestion. Prazosin 5 mg at bedtime for PTSD. Initially patient remained depressed, perseverating on loss of his niece, daughter and with self-deprecating thoughts. Patient would also intermittently make provocative comments; however after few days patient's depression started to melvin and active mostly SI resolved; intermittently patient would have passive SI thoughts but said he said most times he was able to easily dismiss, and the other times he was eventually able to dismiss, them (which is baseline for patient); at 1 point during admission patient did have a resurgence of active SI, worried he will be discharged too soon and that he would be unsafe however this to resolved and going forward remain so. Patient was thus forward in good behavioral and impulse control; Kept to himself more often and initially did not attend many groups but was appropriate with peers and staff and friendly on approach and started to attend groups later during the admission. Patient wanted to discuss medications and felt that lithium had not made much difference; even though dose was subtherapeutic he wanted to switch back to Depakote which he said he had been on in the past and which he found very helpful and stabilizing. [place] was tapered and Depakote titrated. 02/15 Patient says that he is overall feeling better and does not think he will need to be in the hospital much longer. He says he is getting a lot of the groups finds them very beneficial. Discussed discharge this and initially patient was anxious about it saying he wanted to stay another day so he could attend more groups; however with more discussion patient said he would be fine and that he remains overall stable for discharge, with plans to return to his brother's which he finds supportive. Denies any SI and says he will work on staying stable in the community, agreeing to consider going to partial day program. -will reduce Depakote to 1000 q.h.s. and let outpatient provider further titrate if needed; labs -will taper and DC lithium 02/16 patient remained stable and feels good about discharge; no SI and future oriented. Patient has leftover prescriptions that should last for over a week for both Suboxone and clonazepam since he filled them when last discharged and was in the community for only 4 days. survey worker called outpatient team who says that patient can come for a walk-in appointment at any time for refills; they did not want to make a scheduled appointment since they say he chronically misses his appointments. Patient is at baseline. He has remained in good behavioral and impulse control, with depression resolved and anxiety significantly lowered; no SI (though it is noteworthy that patient's baseline includes chronic, intermittent SI). Patient is future oriented and plans to continue treatment as an outpatient. He will very likely continue to struggle with emotional reactivity and at some point become dysregulated again however this is a chronic struggle for him, one of which he is well aware and will not change with longer stay on inpatient unit. Rather he requires consistent outpatient treatment and therapy with which patient has historically struggled to engage, instead frequently presenting for hospitalization; however currently patient says he will pursue stability in the community and agrees to attend a partial day program in effort to do so. Patient is returning to his brother's house where he lives and feels supported. Patient is not in imminent risk for harm to self or others and appropriate to return to the community for treatment Medications: Started Depakote ER 1000 mg q.h.s. DC'd lithium Time spent discussing smoking cessation with patient: 3 to 10 minutes Status at Discharge Functional status at discharge: independent ambulation Overall status at discharge: patient is back to baseline Time Spent with Patient Time attestation: Total time managing care of this patient today __40__ minutes. Time spent: Greater than 30 minutes Specific discharge activities: Met with patient; discussed with team; prescriptions; charting Discharge Plan Discharge Anticipated Discharge Date/Time: 02/17/25 11:30 Patient Disposition: Home, Self-Care Discharge Diagnosis: Bipolar disorder, unspecified Referrals: [facility] Intake for Psychiatry/Therapy [Other] - 1 Day Referral Note: [facility] recommended you go to their walk-in [facility] office for an intake. There you can secure a psychiatry and therapy appts. You will want to go to the walk in intake as soon as possible as they are scheduling out. Please bring your discharge packet as you will be prioritized. Walk-in hours are: M-T 7:30am - 5:00pm Friday 7:30 AM-4:00pm [facility] for Suboxone [Other] - 1 Day Referral Note: [facility] has a [facility] that they are recommending you go to and from there they will get you established with a provider. Their Hours are: Fri and 10-2 and Fri 10-2 Please bring your discharge paperwork with medication list. [facility] [Other] - 1 Day Referral Note: To enroll in IOP, walk in through the [facility], Friday through 7:30 AM-5:00 PM and Friday 7:30 AM-4:00 PM to have an intake completed. Physician,Unknown J [Primary Care Provider, Medical] - 1 Week Discharge Medications: New nicotine (polacrilex) 2 mg Gum 4 mg buccal Q2H PRN (Reason: Nicotine Cravings) 30 Days Qty: 100 0RF divalproex 500 mg Tablet Extended Release 24 Hr 1,000 mg PO BEDTIME 30 Days Qty: 60 0RF albuterol sulfate [Ventolin HFA] 90 mcg/actuation Hfa Aerosol Inhaler 2 puff inhalation RQ4H PRN (Reason: SOB/wheeze) 30 Days Qty: 6.7 0RF fluticasone propionate 50 mcg/actuation [place],Suspension 1 spray intranasal DAILY PRN (Reason: nasal congestion) 30 Days Qty: 16 0RF Continued clonazepam 2 mg tablet 2 mg PO BID buprenorphine-naloxone [Suboxone] 8-2 mg film 1 film sublingual BID prazosin 5 mg capsule 5 mg PO BEDTIME 30 Days Qty: 30 0RF bupropion HCl 300 mg tablet extended release 24 hr 300 mg PO DAILY 30 Days Qty: 30 0RF bupropion HCl 150 mg tablet extended release 24 hr 150 mg PO DAILY 30 Days Qty: 30 0RF gabapentin 600 mg tablet 600 mg PO TID 30 Days Qty: 90 0RF olanzapine 20 mg tablet 20 mg PO BEDTIME 30 Days Qty: 30 0RF Changed melatonin 10 mg tablet 10 mg PO BEDTIME PRN (Reason: sleep) 30 Days Qty: 30 0RF Discontinued lithium carbonate 600 mg capsule 600 mg PO BID Discharge Orders: Discharge Order (Routine); Ordered 02/17/25 Ordered By: Alan Julio Diet: Regular diet Activity on Discharge: As tolerated Stand Alone Forms: Patient Portal Discharge page Print Language: Frisian Care Plan Goals: Maintain mood and safe behaviors Take medications as prescribed Continue to pursue sobriety Practice coping skills Continue with outpatient providers and reach out to them as needed Health Concerns: Mood stability and behaviors Plan of Treatment: Follow up with your PCP, psychiatric provider and other outpatient providers regarding above concerns Take medications as prescribed Assessment: Risk assessment at time of discharge:? Patient was interviewed prior to discharge and found to be fully oriented and without any SI or HI. Patient has improved insight and judgment and wants to continue treatment. Patient is not in imminent risk of harm to self or others and has a safety plan that includes presenting to the closest ER or calling 911 if feeling unsafe.? Patient has been observed closely by nursing and unit staff throughout admission; patient has not engaged in any behaviors that suggest dangerousness to self or others and has demonstrated appropriate behaviors and impulse control
[2025-02-17] MEDS: buPROPion HCl XL 150 MG TAB.ER.24H PO (11:05)
== END 2025-02-17 12:23 | disposition home or self-care (01) | DRG 753 ==
PROVIDERS: Clinical Nurse Specialist Psychiatric/Mental Health, Adult; Nurse Practitioner Psychiatric/Mental Health; Admitting Provider Psychiatry & Neurology Psychiatry; Visit Provider Psychiatry & Neurology Psychiatry
DX: F31.9 Bipolar disorder, unspecified (principal); R45.851 Suicidal ideations; F11.20 Opioid dependence, uncomplicated; F41.9 Anxiety disorder, unspecified; F43.10 Post-traumatic stress disorder, unspecified; Z63.4 Disappearance and death of family member; F10.91 Alcohol use, unspecified, in remission; J45.909 Unspecified asthma, uncomplicated; Z79.899 Other long term (current) drug therapy
CPT/HCPCS: 36415; 80053; 80061; 80076; 80164; 80178; 83036; 84443

== ENCOUNTER → 2025-02-08 17:44 | Outpatient (BNV) | payer OTHER, SELFPAY | PROVIDERS: Admitting Provider Psychiatry & Neurology Psychiatry; Visit Provider Nurse Practitioner Psychiatric/Mental Health | DX: F31.4 Bipolar disorder, current episode depressed, severe, without psychotic features (principal); F43.11 Post-traumatic stress disorder, acute; F41.9 Anxiety disorder, unspecified; F11.90 Opioid use, unspecified, uncomplicated; F10.91 Alcohol use, unspecified, in remission | CPT/HCPCS: 99231; 99232; 99239 ==

== ENCOUNTER → 2025-02-08 17:44 | Outpatient (BNV) | payer OTHER, SELFPAY | PROVIDERS: Admitting Provider Psychiatry & Neurology Psychiatry; Visit Provider Nurse Practitioner Family | DX: F41.9 Anxiety disorder, unspecified (principal) | CPT/HCPCS: 99221 ==